=== PATIENT | male | born 1980 | race Caucasian/White ===

== ENCOUNTER → 2016-12-30 | Outpatient (CLI) | payer BC ==
[~2016-12-30] MED LIST: AZIT250T81 PO; PRED20TA PO
[2016-12-30 10:37] VITALS: BP 118/80
--- NOTE | 2016-12-30 10:37 | Urgent Care T Sheet Ped (E) ---
Information Intake General Temperature (Fahrenheit): 99.2 Pulse: 115 Blood Pressure Systolic: 118 Blood Pressure Diastolic: 80 Respirations: 24 SPO2: 98 History of Present Illness Initial Comments patient presents with illness x [address], aches and fever. Been taking ibuprofen which doesn't last very long. No cough or congestion. Home Meds Active Scripts Prednisone 20 Mg Sahrik30 Mg PO DAILY #6 TAB Prov:JEEVAN TALAVERA 12/30/16 Azithromycin (Zithromax Z-Quinten)6 Tab/Pkt [id number] Mg PO SEE INSTRUCTIONS #6 TAB Ref 0 Day One: Take 2 tablets by mouth Days Two-Five: Take 1 tablet by mouth Prov:JEEVAN TALAVERA 12/30/16 Respiratory Constitutional Symptoms: Fever Malaise EENTM: Throat pain Respiratory: No symptoms reported Cardiovascular: No symptoms reported Neurological: Headache All Other Systems Reviewed Remaining Systems: All other systems reviewed with negative findings Physicial Exam Pediatric General Appearance: No acute distress (appears ill) HEENT: TMs normal Nose normal Tonsillar exudate Pharyngeal erythema Neck Exam: Supple Lymphadenopathy (anterior cervical) Respiratory: Lungs clear Normal breath sounds Cardiovascular Exam: Regular rate, rhythm Progress/Orders Lab Results Labs Results: Rapid Strep (positive) Departure Urgent Care Impression Impression: Primary Impression: Strep pharyngitis Departure Disposition: 01 HOME OR SELF-CARE Condition: Stable Referrals: LENNY MCCOY MD (PCP) Additional Instructions: I have started the patient on a Zpak for treatment of his strep I have also prescribed Prednisone for inflammation and swelling. No NSAIDs while on steroid, take Tylenol as needed Chloraseptic spray for pain Rest. Fluids Return if no better Patient understands DC instructions. All questions were answered. Scripts Prednisone 20 Mg [id number] Mg PO DAILY #6 TAB Prov:JEEVAN TALAVERA 12/30/16 Azithromycin (Zithromax Z-Quinten)6 Tab/Pkt [id number] Mg PO SEE INSTRUCTIONS #6 TAB Ref 0 Day One: Take 2 tablets by mouth Days Two-Five: Take 1 tablet by mouth Prov:JEEVAN TALAVERA 12/30/16 End of report . JEEVAN TALAVERA Dec 30, 2016 09:40
== END ==
LOC: MHUC 09:17
PROVIDERS: ATTEND Physician Assistant
DX: J02.0 Streptococcal pharyngitis (principal)
CPT/HCPCS: 87880; 99213